=== PATIENT | female | born 1990 | race Two or more races ===

== ENCOUNTER 2022-12-31 10:59 | Emergency (ER) | payer SELFPAY ==
[~2022-12-31] VITALS: Ht 154.9 cm; Wt 60.0 kg
[2022-12-31 12:25] VITALS: BP 119/82
[2022-12-31] MEDS ORDERED: TETANUS-DIPTH-ACEL PERTUSSIS 0.5ML SYR Tdap IM ONE (12:30)
[2022-12-31 12:38] LABS: Basophils # (auto) 0 10 ^3/uL (0-0.2); Basophils % (auto) 0.8 % (0.0-2.0); Eosinophils # (auto) 0.1 10 ^3/uL (0-0.8); Eosinophils % (auto) 1.4 % (0.0-7.0); Hemoglobin 10.8 g/dL (12.2-16.2); Monocytes # (auto) 0.8 10 ^3/uL (0-1.3); Monocytes % (auto) 12.6 % (0.0-12.0); Neutrophils # (auto) 3.9 10 ^3/uL (1.6-8.6); Nucleated Red Blood Cells % 0.2 %
[2022-12-31 12:40] LABS: Hematocrit 33.6 % (36.0-46.0); Lymphocytes # (auto) 1.2 10 ^3/uL (0.4-5.4); Mean Corpuscular Hgb Conc. 32.1 g/dL (32.0-36.0); Mean Corpuscular Volume 74.7 fL (80.0-100.0); Neutrophils % (auto) 65.2 % (37.0-80.0); Red Blood Cells 4.49 10^6/uL (4.0-5.20); Red Cell Distribution Width 14.7 % (11.8-14.3)
[2022-12-31 13:01] LABS: Albumin 3.8 g/dL (3.4-5.0); BUN/Creatinine Ratio 18.8 (10.0-20.0); Calcium 9.1 mg/dL (8.5-10.1); Potassium 3.9 mmol/L (3.5-5.1)
[2022-12-31 13:04] LABS: Bilirubin, Total 0.2 mg/dL (0.2-1.0); Total Protein 7.4 g/dL (6.4-8.2)
== END 2022-12-31 14:20 | disposition home or self-care (01) ==
LOC: ER 10:59
DX: S01.81XA Laceration without foreign body of other part of head, initial encounter (principal); R55 Syncope and collapse; Z98.890 Other specified postprocedural states; X58.XXXA Exposure to other specified factors, initial encounter; Y93.89 Activity, other specified; Y92.89 Other specified places as the place of occurrence of the external cause; Y99.8 Other external cause status
CPT/HCPCS: 12013; 36415; 70450; 80053; 82962; 84484; 85025; 90471; 90715

== ENCOUNTER 2023-01-09 12:27 | Emergency (ER) | payer SELFPAY ==
[~2023-01-09] VITALS: Ht 154.9 cm; Wt 59.9 kg
[2023-01-09 14:25] VITALS: BP 106/32
[2023-01-09] MEDS ORDERED: ACETAMINOPHEN 500 MG TAB PO ONE (14:45)
== END 2023-01-09 14:58 | disposition home or self-care (01) ==
LOC: ER 12:27
DX: S01.81XD Laceration without foreign body of other part of head, subsequent encounter (principal)